=== PATIENT | male | born 1935 | race Caucasian/White ===

== ENCOUNTER 2017-11-01 13:37 | Outpatient (CLI) | payer MEDICARE, BC ==
--- NOTE | 2017-11-01 18:31 | CT ---
CT ABDOMEN AND PELVIS WITHOUT IV CONTRAST: INDICATIONS: History of common iliac aneurysm. COMPARISON: 11/02/2016 FINDINGS: A 3.6 cm aneurysm involving the right common iliac artery is stable. A 3.1 cm aneurysm involving the left common iliac artery is stable. There is persistent elevation of the right hemidiaphragm with right basilar atelectasis. There is a small hiatal hernia. Unopacified liver, pancreas, and adrenal glands are unremarkable. The spleen is surgically absent. There is a stable small cyst involving the inferior pole left kidney. No hydronephrosis is evident. No free fluid or enlarged lymph nodes are evident. Stable post surgical change of prior anterior abdominal wall hernia repair with associated hernia mes h. There are scattered diverticula involving the colon without evidence of active diverticulitis. There is scattered degenerative and osteoarthritic change. IMPRESSION: 1. Stable common iliac artery aneurysms within the limitations of this noncontrast exam. 2. Other stable chronic findings as above. POS: [facility]
== END 2017-11-01 13:38 | disposition home or self-care (01) ==
LOC: CT 13:37
PROVIDERS: ATTEND Thoracic Surgery (Cardiothoracic Vascular Surgery)
DX: I72.3 Aneurysm of iliac artery (principal)
CPT/HCPCS: 74176

== ENCOUNTER 2018-05-18 07:49 | Outpatient (CLI) | payer MEDICARE, BC | END 2018-05-18 07:50 | disposition home or self-care (01) | LOC: CT 07:49 | PROVIDERS: ATTEND Thoracic Surgery (Cardiothoracic Vascular Surgery) | DX: I72.3 Aneurysm of iliac artery (principal) | CPT/HCPCS: 82565 ==

== ENCOUNTER 2018-05-31 07:45 | Outpatient (CLI) | payer MEDICARE, BC ==
--- NOTE | 2018-05-31 10:56 | CT ---
CT OF THE ABDOMEN WITHOUT IV CONTRAST: Date: 05/31/18 INDICATION: Aneurysm. COMPARISON: Prior CT of the abdomen and pelvis dated 11/01/17. FINDINGS: The right common iliac artery aneurysm is slightly larger, now measuring 3.9 cm, whereas it measured 3.6 cm on the prior exam. The left common iliac artery aneurysm measures 3.1 cm, which is stable. The right internal iliac artery aneurysm measures 1.9 cm, which is stable. There is a small hiatal hernia. There is elevation of the right hemidiaphragm with mild right basilar atelectasis. There are scattered vascular calcifications. Unopacified kidneys and adrenal glands appear within normal limits. The spleen is surgically absent. There is a stable small cyst involving the inferior pole of the left kidney. There is scattered diver ticula involving the colon. There is postsurgical change of a hernia repair involving the right anter ior abdominal wall. There is scattered degenerative and osteoarthritic change. IMPRESSION: 1. Worsening aneurysmal dilatation of the right common iliac artery, now measuring 3.9 cm, whereas i t previously measured 3.6 cm. 2. Stable left common iliac artery aneurysm measuring 3.1 cm. 3. Stable right internal iliac artery aneurysm measuring 1.9 cm. 4. Other stable chronic findings as above. POS: [facility]
== END 2018-05-31 07:46 | disposition home or self-care (01) ==
LOC: CT 07:45
PROVIDERS: ATTEND Thoracic Surgery (Cardiothoracic Vascular Surgery)
DX: I72.3 Aneurysm of iliac artery (principal); J98.11 Atelectasis; Q79.1 Other congenital malformations of diaphragm; K44.9 Diaphragmatic hernia without obstruction or gangrene; N28.1 Cyst of kidney, acquired; K57.30 Diverticulosis of large intestine without perforation or abscess without bleeding; M19.90 Unspecified osteoarthritis, unspecified site; Z98.890 Other specified postprocedural states
CPT/HCPCS: 74150

== ENCOUNTER 2018-07-21 10:14 | Outpatient (CLI) | payer MEDICARE, BC ==
[2018-07-21 10:58] LABS: Mean Corpuscular HGB CONC 31.9 g/dL (32.0-36.0); Mean Corpuscular Hemoglobin 29.2 pg (27.0-31.0); Mean Corpuscular Volume 91.6 fL (78.0-98.0); Mean Platelet Volume 9.3 fL (7.4-10.4); Platelet Count 214 thou/uL (130-400); RBC Distribution Width 12.3 % (11.5-14.5); Red Blood Cell (RBC) Count 5.11 mill/uL (4.70-6.10); White Blood Cell (WBC) Count 7.5 thou/uL (4.8-10.8)
[2018-07-21 11:25] LABS: Anion Gap 15 mmol/L (10-20); BUN (Urea Nitrogen) 27 mg/dL (8.4-25.7); Calc. Creatinine Clearance 0 mL/min (70-130); Calcium 9.3 mg/dL (7.8-10.44); Carbon Dioxide 23 mmol/L (23-31); Chloride 107 mmol/L (98-107); Estimated GFR-MDRD 31; Glucose 100 mg/dL (83-110); Potassium 4.6 mmol/L (3.5-5.1); Sodium 140 mmol/L (136-145)
[2018-07-21 11:33] LABS: Band 24 % (5-11); Eosinophils 1 % (0-10); Lymphocytes 18 % (21-51); MDiff Complete? YES; Metamyelocyte 2 % (0-0); Monocytes 8 % (0-10); Neutrophil 42 % (42-75); Reactive Lymphocytes 4 % (0-10)
== END 2018-07-21 10:15 | disposition home or self-care (01) ==
LOC: LABBT 10:14
PROVIDERS: ATTEND Thoracic Surgery (Cardiothoracic Vascular Surgery)
DX: Z01.818 Encounter for other preprocedural examination (principal); I72.3 Aneurysm of iliac artery
CPT/HCPCS: 80048; 85025; 93005; 93010

== ENCOUNTER 2018-07-21 10:15 | Inpatient (IN) | payer MEDICARE, BC ==
--- NOTE | 2018-07-20 16:01 | HP ---
HISTORY OF PRESENT ILLNESS: This is an 83-year-old gentleman with a history of hypertension and dyslipidemia, who has been followed for some years for bilateral iliac artery aneurysms. Mostly recently, his right common iliac aneurysm has grown to about 4 cm with left side stable at 3. He has been elected to proceed with intervention for the right-sided iliac aneurysm with stent graft coverage and embolization of the right internal iliac artery. PAST MEDICAL HISTORY: Significant for hypertension, dyslipidemia, and remote kidney stone. PAST SURGICAL HISTORY: Includes remote splenectomy following a fall in 1991 and then a ventral hernia repair with mesh and hydrocele repair in 2001. FAMILY HISTORY: Both parents are . SOCIAL HISTORY: He is nonsmoker. . REVIEW OF SYSTEMS: He plays golf at least 2 days a week. Remains active. PHYSICAL EXAMINATION: VITAL SIGNS: Blood pressure 156/90. Height 6 feet 2 inches and weight 196. NECK: No carotid bruits. LUNGS: Clear to auscultation. CARDIAC: Regular rate and rhythm. ABDOMEN: Soft, nontender and nondistended. No masses. EXTREMITIES: He has intact pulses throughout with no clubbing, cyanosis, or edema. PLAN: Plan at this time is for endovascular aneurysm repair. The patient's creatinine is 2.1. Job ID: [id number]
[2018-07-22] MEDS ORDERED: Bupivacaine HCl 0.5%/Epinephrine 1:200,000/PF 30 ml Vial ONE (06:28)
[2018-07-22] MEDS ORDERED: Heparin 5,000 UNITS/ML VIAL ONE (06:28)
[2018-07-22] MEDS ORDERED: Protamine Sulfate 50 MG/5 ML VIAL ONE (06:28)
[2018-07-22] MEDS ORDERED: Fentanyl 100 MCG/2 ML VIAL ONE ×2 (06:39→09:44)
[2018-07-22] MEDS ORDERED: Midazolam HCl 2 mg/2 ml Vial ONE (06:39)
[2018-07-22] MEDS ORDERED: Heparin 10,000 UNITS/1 ML VIAL ONE ×2 (06:41→08:23)
[2018-07-22] MEDS ORDERED: CEFAZOLIN 2 GM/50 ML BAG ONE (06:44)
[2018-07-22] MEDS ORDERED: SUGAMMADEX SODIUM 200 MG/2 ML VIAL ONE (09:29)
[2018-07-22] MEDS ORDERED: Ondansetron HCl/PF 4 MG/2 ML Vial IVP PRN (09:43)
[2018-07-22] MEDS ORDERED: Ondansetron PF 4 MG/2 ML Vial IVP PRN (10:49)
[2018-07-22] MEDS ORDERED: hydrALAZINE 20 MG/ML VIAL SLOW IVP PRN (10:49)
[2018-07-22] MEDS ORDERED: Phenylephrine 10 MG/NS 250 ML 250 ML IVPB PRN (10:49)
[2018-07-22] MEDS ORDERED: Fentanyl 100 MCG/2 ML VIAL SLOW IVP PRN (10:49)
[2018-07-22] MEDS ORDERED: Acetaminophen 325 MG TAB PO PRN (10:49)
[2018-07-22] MEDS ORDERED: HYDROcodone/Acetaminophen 5/325 mg Tablet PO PRN ×2 (10:49)
[2018-07-22 11:34] VITALS: BMI 24.9
[2018-07-22] MEDS: Sodium Chloride 0.9% 1,000 ML IV SCH ×2 (11:43→18:49)
[2018-07-22] MEDS: CEFAZOLIN 2 GM/50 ML BAG IVPB SCH ×2 (14:23→22:41)
--- NOTE | 2018-07-22 15:33 | OP ---
DATE OF PROCEDURE: 07/22/2018 PREOPERATIVE DIAGNOSIS: Bilateral common iliac artery aneurysms, right greater than left. PROCEDURES PERFORMED: Endovascular aneurysm repair with a single Endurant, two limb, 16 x 16 x 156 to treat a right common iliac artery aneurysm and hypogastric coiling using 0.018 interlock 8 x 20, 10 x 20, 10 x 30. ANESTHESIA: General. ESTIMATED BLOOD LOSS: 100. FLUOROSCOPY: 22 minutes and 24 seconds. CONTRAST: 77 mL. PROCEDURE: After adequate anesthesia had been obtained, the patient was prepped and draped, and ultrasound-guided puncture of the right common femoral artery was performed and two Perclose devices were deployed. Following this, the 5-Nepali sheath was exchanged for an 11-Nepali sheath. Aluwave guidewire was used to place a marker pigtail and a contrast run was performed. Following this, the VitaFlavortronic steerable 6.5 device was utilized to cannulate the right hypogastric artery and through this catheter, an angled Rowley catheter was placed and through this, a direxion microcatheter was placed. Three coils were deployed including a 10 x 30, a 10 x 20, and an 8 x 20. Following this, the pigtail catheter was used after removal of the 6.5 device and repeat angiogram obtained. At this time, it was felt that being able to visualize the tortuous iliac and graft placement would be best served by having a contrast injection catheter from the aorta and for this reason, a needle and guidewire were used to puncture the left common femoral artery. A 5-Nepali sheath was placed in the marker. Pigtail was then advanced into the aorta. Repeat angiography was obtained, following which the 16-mm graft was advanced over the stiff wire. It was positioned, then deployed. Following this, Resilient balloon was then used to inflate the graft throughout. There was no endoleak on completion angiography and several projections were utilized to ensure there was no kinking in the graft. There was excellent flow. As mentioned, no endoleak and no visible contrast in the right hypogastric artery. Following this, the devices were removed and Perclose x2 in the right groin and then x1 in the left groin were deployed. Good hemostasis on the right and hemostasis obtained with compression on the left. Palpable pedal pulses at the conclusion of the case. Job ID: [id number] [facility]
[2018-07-22] MEDS ORDERED: Vecuronium 10 MG VIAL ONE (21:11)
[2018-07-22] MEDS ORDERED: Sterile Water 10 ML VIAL ONE (21:11)
[2018-07-22] MEDS ORDERED: PHENYLEPHRINE-NS 100 MCG/ML 10 ML SYRINGE ONE (21:11)
[2018-07-22] MEDS ORDERED: Ondansetron PF 4 MG/2 ML Vial ONE (21:11)
[2018-07-22] MEDS ORDERED: Ketorolac Tromethamine 30 MG/ML VIAL ONE (21:11)
[2018-07-22] MEDS ORDERED: Heparin 10,000 UNITS/ 10 ML VIAL ONE (21:11)
[2018-07-22] MEDS ORDERED: PROPOFOL 200 MG/20 ML VIAL ONE (21:11)
[2018-07-22] MEDS ORDERED: Dexamethasone 20 MG/5 ML VIAL ONE (21:11)
[2018-07-22] MEDS ORDERED: Lidocaine 1% PF 5 ML VIAL ONE (21:11)
[2018-07-22] MEDS ORDERED: ePHEDrine/0.9% NaCl/PF SYRINGE 50 mg/10 ml ONE (21:11)
[2018-07-22] MEDS ORDERED: Glycopyrrolate 0.2 MG/ML 5 ML SYRINGE ONE (21:11)
[2018-07-23 04:30] LABS: #Lymphocytes 1.4 thou/uL (1.20-3.40); #Monocytes 1.4 thou/uL (0.11-0.59); %Basophils 0.2 % (0.0-1.0); %Eosinophils 0.2 % (0.0-10.0); %Lymphocytes 11.4 % (21.0-51.0); %Neutrophils 76.2 % (42.0-75.0); Hemoglobin 12.6 g/dL (14.0-18.0); Mean Corpuscular HGB CONC 32.3 g/dL (32.0-36.0); Mean Corpuscular Hemoglobin 29.5 pg (27.0-31.0); Mean Corpuscular Volume 91.5 fL (78.0-98.0); Mean Platelet Volume 9.3 fL (7.4-10.4); Platelet Count 174 thou/uL (130-400); RBC Distribution Width 12.2 % (11.5-14.5); Red Blood Cell (RBC) Count 4.27 mill/uL (4.70-6.10); White Blood Cell (WBC) Count 11.8 thou/uL (4.8-10.8)
[2018-07-23 04:38] LABS: Anion Gap 11 mmol/L (10-20); BUN (Urea Nitrogen) 32 mg/dL (8.4-25.7); Calc. Creatinine Clearance 36 mL/min (70-130); Calcium 8.5 mg/dL (7.8-10.44); Carbon Dioxide 24 mmol/L (23-31); Chloride 107 mmol/L (98-107); Estimated GFR-MDRD 32; Glucose 108 mg/dL (83-110); Potassium 4.1 mmol/L (3.5-5.1); Sodium 138 mmol/L (136-145)
[2018-07-23] MEDS: CEFAZOLIN 2 GM/50 ML BAG IVPB SCH (06:37)
[2018-07-23 08:13] VITALS: TEMP 98.1
[2018-07-23] MEDS ORDERED: Simvastatin 20 MG TAB PO SCH (09:00)
--- NOTE | 2018-07-23 11:25 | DIS ---
DATE OF ADMISSION: 07/22/2018 DATE OF DISCHARGE: 07/23/2018 PRINCIPAL DIAGNOSES: 1. Bilateral common iliac artery aneurysms, right greater than left. 2. Chronic renal insufficiency. PROCEDURES PERFORMED: A 16 x 16 x 156 stent graft repair of right common iliac artery aneurysm and coil embolization of right internal iliac artery on 07/22/2018. HISTORY OF PRESENT ILLNESS AND HOSPITAL COURSE: The patient is an 83-year-old man, who on recent followup was noted to have had significant enlargement of right common iliac artery aneurysm. The left common iliac had remained stable. It was opted to proceed with endovascular repair of that right common iliac artery aneurysm. The patient was admitted and underwent elective stent graft repair of that aneurysm, which required coil embolization of the internal iliac on that side because of a baseline creatinine of around 2. He was hydrated overnight. Today, on postoperative day 1, his creatinine has remained stable with his preop creatinine being 2.05 and creatinine this morning being 2.03. He has had 1400 mL of urine output postoperatively including spontaneously voiding well since removal of his catheter yesterday evening. Today, his groin wound looks fine, and he has palpable dorsalis pedis pulses bilaterally. Baby aspirin is being added to his home regimen of medicines. He assures me that his pain control is adequate without prescription of pain medicine. Job ID: [id number]
== END 2018-07-23 09:55 | disposition home or self-care (01) | DRG 272 ==
LOC: SURG A 07-22 06:04 → CCU 07-22 11:29
PROVIDERS: ADMIT Thoracic Surgery (Cardiothoracic Vascular Surgery); ATTEND Thoracic Surgery (Cardiothoracic Vascular Surgery)
PROC: 04VC3DZ Restriction of Right Common Iliac Artery with Intraluminal Device, Percutaneous Approach (ICD-10-PCS; principal; 2018-07-22)
PROC: 04VD3DZ Restriction of Left Common Iliac Artery with Intraluminal Device, Percutaneous Approach (ICD-10-PCS; 2018-07-22)
DX: I72.3 Aneurysm of iliac artery (principal); N18.9 Chronic kidney disease, unspecified; I12.9 Hypertensive chronic kidney disease with stage 1 through stage 4 chronic kidney disease, or unspecified chronic kidney disease; E78.5 Hyperlipidemia, unspecified
CPT/HCPCS: 36415; 76001; 80048; 85025; 93005; 93010; A4216; C1725; C1726; C1760; C1769; C1894; J0670; J1100; J1644; J1885; J2001; J2250; J2405; J2704; J2720; J3010

== ENCOUNTER 2019-07-03 09:58 | Outpatient (CLI) | payer MEDICARE, BC ==
--- NOTE | 2019-07-03 11:26 | CT ---
CT Abdomen Pelvis WO Con History: Aneurysm of the iliac artery. Comparison: CT abdomen and pelvis May 31, 2018 Findings: There is elevation of the right hemidiaphragm, chronic. No pericardial effusion. No nephroureterolithiasis or hydroureteronephrosis. No secondary evidence of a recently passed stone. Similar appearance of the right iliac artery aneurysm which is excluded with a graft. The left iliac artery aneurysm is also similar which does not contain a contrast. No acute osseous abnormality. No hemorrhage. There is right internal iliac coil material. No free intraperitoneal gas or fluid. Noncontrast evaluation of the liver, gallbladder, pancreas are unremarkable. No spleen is appreciated. Prior ventral hernia repair. Moderate diverticular disease of the sigmoid colon. Impression: Size unchanged iliac artery aneurysms.
== END 2019-07-03 09:59 | disposition home or self-care (01) ==
LOC: CT 09:58
PROVIDERS: ATTEND Thoracic Surgery (Cardiothoracic Vascular Surgery)
DX: I72.3 Aneurysm of iliac artery (principal)
CPT/HCPCS: 74176

== ENCOUNTER 2020-12-03 14:08 | Outpatient (CLI) | payer MEDICARE, BC | END 2020-12-03 14:09 | disposition home or self-care (01) | LOC: BICCT 14:08 | PROVIDERS: ATTEND Thoracic Surgery (Cardiothoracic Vascular Surgery) | DX: I72.3 Aneurysm of iliac artery (principal) | CPT/HCPCS: 74176 ==

== ENCOUNTER 2022-12-23 12:21 | Outpatient (CLI) | payer MEDICARE, OTHER | END 2022-12-23 12:22 | disposition home or self-care (01) | LOC: CT 12:21 | PROVIDERS: ATTEND Thoracic Surgery (Cardiothoracic Vascular Surgery) | DX: I72.3 Aneurysm of iliac artery (principal) | CPT/HCPCS: 74176 ==